=== PATIENT | male | born 2000 | race Caucasian/White ===

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

== ENCOUNTER → 2018-01-25 10:40 | Outpatient (CLI) | payer BC, SELFPAY ==
[2018-01-25 12:27] LABS: Absolute Lymphocyte Count 2.12 X10^3/ul (0.83-4.51); Absolute Neutrophil Count 3.4 X10^3/uL (2.0-7.7); Basophil# 0.01 X10^3/uL; Basophil% 0.2 % (0-1); Eosinophils% 1.7 % (0-5); Hematocrit 45.1 % (40-54); Hemoglobin 15.4 g/dl (13.0-16.5); Lymphocyte # 2.12 X10^3/ul (4.0); Lymphocyte % 35.2 % (19-41); Mean Corp Hgb Conc 34.1 g/gl (32-36); Mean Corpuscular Hgb 30.3 pg (27.0-32.0); Mean Corpuscular Volume 88.6 fL (80-94); Mean Platelet Vol. 12.2 fl (6.2-12.0); Monocyte# 0.36 X10^3/uL; Neutrophil # 3.44 X10^3/uL (2.7-7.7); Neutrophil % 56.9 % (47-70); Platelet Count 179 K/mm3 (150-450); RBC Distribution Width CV 12.5 % (11.6-14.6); RBC Distribution Width SD 39.9 fl (35.1-43.9); Red Blood Count 5.09 M/mm3 (4.6-6.2)
[2018-01-25 12:31] LABS: POSITIVE COUNT NO; POSITIVE DIFFERENTIAL NO; POSITIVE MORPHOLOGY NO
[2018-01-25 12:45] LABS: ALB/GLOB Ratio 1.1 RATIO (0.9-2.4); AST(SGOT) 17 U/L (15-37); Alanine Aminotransfer ALT/SGPT 27 U/L (16-61); Albumin, Serum 4.2 g/dL (3.2-5.0); Alkaline Phosphatase 74 U/L (45-117); Anion Gap 8 (5-15); BUN 14 mg/dL (7-18); BUN/Creat Ratio 15.1 RATIO (10-20); Calcium,Total 9.4 mg/dL (8.5-10.1); Chloride 105 mmol/L (98-107); Creatinine, Serum 0.93 mg/dL (0.70-1.30); EST Glomerular Filtration Rate 110 mL/min (>60); Est Glom Filt Rate - Afr Amer 133 mL/min (>60); Globulin 3.9 g/dL (2.2-4.2); Glucose 112 mg/dL (74-106); Protein, Total 8.1 g/dL (6.4-8.2); Sodium Level 140 mmol/L (136-145)
== END ==
PROVIDERS: Family Provider Pediatrics; PCP Pediatrics; Visit Provider Internal Medicine Rheumatology
DX: M06.4 Inflammatory polyarthropathy (principal); Z79.899 Other long term (current) drug therapy; M21.40 Flat foot [pes planus] (acquired), unspecified foot; K21.9 Gastro-esophageal reflux disease without esophagitis; J45.909 Unspecified asthma, uncomplicated; N20.0 Calculus of kidney
CPT/HCPCS: 36415; 80053; 85025

== ENCOUNTER → 2018-04-24 07:36 | Outpatient (CLI) | payer BC, SELFPAY ==
[2018-04-24 10:53] LABS: Absolute Lymphocyte Count 2.95 X10^3/ul (0.83-4.51); Absolute Neutrophil Count 3.4 X10^3/uL (2.0-7.7); Basophil# 0.02 X10^3/uL; Basophil% 0.3 % (0-1); Eosinophils% 2.7 % (0-5); Hematocrit 43.1 % (40-54); Lymphocyte # 2.95 X10^3/ul (4.0); Lymphocyte % 39.8 % (19-41); Mean Corp Hgb Conc 34.8 g/gl (32-36); Mean Corpuscular Hgb 30.4 pg (27.0-32.0); Mean Corpuscular Volume 87.2 fL (80-94); Mean Platelet Vol. 11.8 fl (6.2-12.0); Monocyte# 0.84 X10^3/uL; Monocyte% 11.3 % (0-10); Neutrophil # 3.38 X10^3/uL (2.7-7.7); Neutrophil % 45.5 % (47-70); Platelet Count 198 K/mm3 (150-450); RBC Distribution Width CV 12.2 % (11.6-14.6); RBC Distribution Width SD 38.1 fl (35.1-43.9); Red Blood Count 4.94 M/mm3 (4.6-6.2); White Blood Count 7.4 K/mm3 (4.4-11.0)
[2018-04-24 10:54] LABS: POSITIVE COUNT NO; POSITIVE DIFFERENTIAL NO; POSITIVE MORPHOLOGY NO
[2018-04-24 11:10] LABS: ALB/GLOB Ratio 1.1 RATIO (0.9-2.4); AST(SGOT) 15 U/L (15-37); Alanine Aminotransfer ALT/SGPT 26 U/L (16-61); Alkaline Phosphatase 66 U/L (45-117); Anion Gap 8 (5-15); BUN 20 mg/dL (7-18); BUN/Creat Ratio 23.2 RATIO (10-20); Calcium,Total 9.4 mg/dL (8.5-10.1); Chloride 106 mmol/L (98-107); Creatinine, Serum 0.86 mg/dL (0.70-1.30); EST Glomerular Filtration Rate 120 mL/min (>60); Est Glom Filt Rate - Afr Amer 145 mL/min (>60); Globulin 3.6 g/dL (2.2-4.2); Glucose 85 mg/dL (74-106); Potassium 4.3 mmol/L (3.5-5.1); Protein, Total 7.6 g/dL (6.4-8.2); Sodium Level 143 mmol/L (136-145)
--- OUTSIDE RECORDS SUMMARY | 2018-06-10 02:33 | XMS RPT_ITS ---
:2000 Author Organization OH[facility] Care Team Providers Name Role Phone RONALD FRANKEL Attending Unavailable JOHN HAYWARD (PT) Attending Unavailable EV LOPEZ (BUSINESS MACHINE OPERATOR) Referring Unavailable Sophie Kenyon Attending Unavailable Sophie Kenyon Referring Unavailable Holley Arroyo Primary Care Unavailable Pablo Henry Attending Unavailable Holley Arroyo Primary Care Unavailable Pablo Henry Referring Unavailable Angelitocortez Sophie Attending Unavailable Velursula, Sophie Referring Unavailable Holley Arroyo Primary Care Unavailable Velursula, Sophie Attending Unavailable Vellanki, Sophie Referring Unavailable Holley Arroyo Primary Care Unavailable Vellanki, Sophie Attending Unavailable Vellancortez, Sophie Referring Unavailable Holley Arroyo Primary Care Unavailable PROBLEMS PROBLEMS DATE TYPE CONDITION / CODE ATTENDING STATUS SOURCE 04/24/2018 Unknown 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 / Community M06.4(ICD-10) Hospital Repository 04/24/2018 Unknown Z79.899 - Other long Sophie Kenyon Active [facility] term (current) drug Community therapy / Hospital Z79.899(ICD-10) Repository 04/24/2018 Unknown M21.40 - Flat foot Sophie Kenyon Active [facility] [pes planus] Formerly [facility] (acquired), Hospital unspecified foot / Repository M21.40(ICD-10) 04/24/2018 Unknown K21.9 - Sophie Kenyon Active [facility] Gastro-esophageal Formerly [facility] reflux disease Hospital without esophagitis / Repository K21.9(ICD-10) 04/24/2018 Unknown J45.909 - Unspecified VelSophie vergara Active [facility] asthma, uncomplicated Community / J45.909(ICD-10) Hospital Repository 04/24/2018 Unknown N20.0 - Calculus of Sophie Kenyon Active [place] kidney / Community N20.0(ICD-10) Hospital Repository 07/03/2016 Active Concussion without GOLIAS, JOHN Active [facility] loss of (PT) Clinic Main consciousness, [place] initial encounter / Repository S06.0X0A(ICD-10) PROCEDURES PROCEDURES No Procedure Records FoundRESULTS RESULTS CBC W/DIFF, AUTOMATED Collected: 04/24/2018 Status: F Source: [facility] TYPE CODE TESTS RESULT OUT OF RANGE REFERENCE UNITS LAB L100.1000 4.4-11.0 K/mm3 Normal WBC 7.4 LAB L100.1200 4.6-6.2 M/mm3 Normal RBC 4.94 LAB L100.1300 13.0-16.5 g/dl Normal HGB 15.0 LAB L100.1400 40-54 % Normal HCT 43.1 LAB L100.1500 80-94 fL Normal MCV 87.2 LAB L100.1600 27.0-32.0 pg Normal MCH 30.4 LAB L100.1700 32-36 g/gl Normal MCHC 34.8 LAB L100.1810 11.6-14.6 % Normal RDW CV 12.2 LAB L100.1820 35.1-43.9 fl Normal RDW SD 38.1 LAB L100.1900 150-450 K/mm3 Normal PLT 198 LAB L100.2000 6.2-12.0 fl Normal MPV 11.8 LAB L100.2100 47-70 % Low NEUT% 45.5 LAB L100.2200 19-41 % Normal LY% 39.8 LAB L100.2300 0-10 % High MONO% 11.3 LAB L100.2400 0-5 % Normal EO% 2.7 LAB L100.2500 0-1 % Normal BASO% 0.3 LAB L100.2550 0.0-0.9 % Normal IM GRAN % 0.400 Result Comment: IG% - Immature Granulocytes (promyelocytes, myelocytes and metamyelocytes) > 1% indicates that a LEFT SHIFT is Present. LAB L100.2620 2.0-7.7 X10 3/uL Normal Absolute Neut 3.4 LAB L100.2720 0.83-4.51 X10 3/ul Normal Absolute Lymph 2.95 Performed By: #### L100.0100 #### [facility] [address] [place], [address] COMPREHENSIVE METABOLIC Collected: 04/24/2018 Status: F Source: [place] 7:44 AM [facility] REPOSITORY TYPE CODE TESTS RESULT OUT OF RANGE REFERENCE UNITS LAB L501.0100 74-106 mg/dL Normal GLU 85 Result Comment: Please note revised GLUCOSE reference range effective 2017. LAB L501.1000 7-18 mg/dL High BUN 20 LAB L501.1100 0.70-1.30 mg/dL Normal CREAT,SERUM 0.86 Result Comment: The validity of the calculated GFR AND GFRAA in patients over 70 years has not been determined. Clinical correlation is essential. LAB L501.1110 >60 mL/min Normal EST GFR 120 Result Comment: Non- GFR Calc LAB L501.1115 >60 mL/min Normal EST GFR - AA 145 Result Comment: GFR Calc LAB L501.1300 10-20 RATIO High BUN/CRE 23.2 LAB L501.1500 6.4-8.2 g/dL T Normal PROT 7.6 LAB L501.1800 3.2-5.0 g/dL Normal ALB 4.0 LAB L501.1950 2.2-4.2 g/dL Normal GLOB 3.6 LAB L501.2000 0.9-2.4 RATIO Normal A/G 1.1 LAB L501.2200 8.5-10.1 mg/dL CA Normal 9.4 LAB L501.4100 15-37 U/L Normal AST 15 LAB L501.4305 45-117 U/L Normal ALK P 66 LAB L501.4405 16-61 U/L Normal ALT 26 LAB L501.4600 0.20-1.00 mg/dL T Normal BILI 0.40 LAB L501.5300 136-145 mmol/L NA Normal 143 LAB L501.5600 3.5-5.1 mmol/L K Normal 4.3 LAB L501.5900 98-107 mmol/L CL Normal 106 LAB L501.6100 21.0-32.0 mmol/L Normal CO2 29.0 LAB L501.6200 5-15 Normal GAP 8 Performed By: #### L500.4050 #### [facility] [address] [place], [address] CBC W/DIFF, AUTOMATED Collected: 01/25/2018 Status: F Source: [place] 10:44 AM [facility] REPOSITORY TYPE CODE TESTS RESULT OUT OF RANGE REFERENCE UNITS LAB L100.1000 4.4-11.0 K/mm3 Normal WBC 6.0 LAB L100.1200 4.6-6.2 M/mm3 Normal RBC 5.09 LAB L100.1300 13.0-16.5 g/dl Normal HGB 15.4 LAB L100.1400 40-54 % Normal HCT 45.1 LAB L100.1500 80-94 fL Normal MCV 88.6 LAB L100.1600 27.0-32.0 pg Normal MCH 30.3 LAB L100.1700 32-36 g/gl Normal MCHC 34.1 LAB L100.1810 11.6-14.6 % Normal RDW CV 12.5 LAB L100.1820 35.1-43.9 fl Normal RDW SD 39.9 LAB L100.1900 150-450 K/mm3 Normal PLT 179 LAB L100.2000 6.2-12.0 fl High MPV 12.2 LAB L100.2100 47-70 % Normal NEUT% 56.9 LAB L100.2200 19-41 % Normal LY% 35.2 LAB L100.2300 0-10 % Normal MONO% 6.0 LAB L100.2400 0-5 % Normal EO% 1.7 LAB L100.2500 0-1 % Normal BASO% 0.2 LAB L100.2550 0.0-0.9 % Normal IM GRAN % 0.000 Result Comment: IG% - Immature Granulocytes (promyelocytes, myelocytes and metamyelocytes) > 1% indicates that a LEFT SHIFT is Present. LAB L100.2620 2.0-7.7 X10 3/uL Normal Absolute Neut 3.4 LAB L100.2720 0.83-4.51 X10 3/ul Normal Absolute Lymph 2.12 Performed By: #### L100.0100 #### [facility] [address] [place], [place], [address] COMPREHENSIVE METABOLIC Collected: 01/25/2018 Status: F Source: [facility] 10:44 AM [facility] REPOSITORY TYPE CODE TESTS RESULT OUT OF RANGE REFERENCE UNITS LAB L501.0100 74-106 mg/dL High GLU 112 Result Comment: Fasting Glucose result from 100 to 125 mg/dL suggests IMPAIRED HOMEOSTASIS per A.D.A. criteria. Please note revised GLUCOSE reference range effective 2017. LAB L501.1000 7-18 mg/dL Normal BUN 14 LAB L501.1100 0.70-1.30 mg/dL Normal CREAT,SERUM 0.93 Result Comment: The validity of the calculated GFR AND GFRAA in patients over 70 years has not been determined. Clinical correlation is essential. LAB L501.1110 >60 mL/min Normal EST GFR 110 Result Comment: Non- GFR Calc LAB L501.1115 >60 mL/min Normal EST GFR - AA 133 Result Comment: GFR Calc LAB L501.1300 10-20 RATIO Normal BUN/CRE 15.1 LAB L501.1500 6.4-8.2 g/dL T Normal PROT 8.1 LAB L501.1800 3.2-5.0 g/dL Normal ALB 4.2 LAB L501.1950 2.2-4.2 g/dL Normal GLOB 3.9 LAB L501.2000 0.9-2.4 RATIO Normal A/G 1.1 LAB L501.2200 8.5-10.1 mg/dL CA Normal 9.4 LAB L501.4100 15-37 U/L Normal AST 17 LAB L501.4305 45-117 U/L Normal ALK P 74 LAB L501.4405 16-61 U/L Normal ALT 27 LAB L501.4600 0.20-1.00 mg/dL T Normal BILI 0.90 LAB L501.5300 136-145 mmol/L NA Normal 140 LAB L501.5600 3.5-5.1 mmol/L K Normal 4.0 LAB L501.5900 98-107 mmol/L CL Normal 105 LAB L501.6100 21.0-32.0 mmol/L Normal CO2 27.0 LAB L501.6200 5-15 Normal GAP 8 Performed By: #### L500.4050 #### [facility] [place], [address] CNOV Observed: 01/10/2018 Status: COMPLETED Source: [place] 10:00 AM [facility] REPOSITORY Office Visit (PEDSWS) ALBERT SCHNEIDER ([id number]) 2000 M Date Time Provider Department 01/10/18 10:00 AM RONALD FRANKEL During your visit today, we recorded the following information about you: Temperature Pulse Respiration Blood pressure 97.8 degrees 80/minute 18/minute 112/74 Weight Height 85.7 kg 1.803 m Ronald Frankel MD 01/10/2018 1:23 PM Signed 18 year old male presents for a routine 12+ year check-up. Patient sees an outside provider for rheumatology. Per the patient his working diagnosis is rheumatoid arthritis. It does not appear that the outside radiation control specialist communicates with this office. No notes in the scanned documentation section. 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 Negative for: intravenous drug user, healthcare worker, live or work in a homeless [employer], migrant farm camp, assisted or fdc, or [place]. [] GENERAL QUESTIONS color enhanced section Patient concerns: NONE Parental concerns: NONE Diet: milk: whole ; balanced diet; specific issues: NONE Stools: NORMAL (soft and appropriately sized) Urine: NO PROBLEMS Fluoride Water: uses significant amount of well water Prescription: age 17+ years - no fluoride supplement indicated Ongoing subspecialty care: Ongoing care: sees For arthritis Ongoing ancillary care: NONE School/etc: college sophomore, doing well, grades A-B. Interests AND Activities: NONE Significant stresses: No [] SPORTS QUESTIONS color enhanced section History of seizures: No History of concussion: No History of syncope: No History of heart problems: No History of hypertension: No History of asthma: No History of single kidney: No History of skeletal problems: No History of any significant injury: No Family history of either heart problems or sudden <age 40 years: No MEDICAL HISTORY Past medical history: IMPORTED PAST MEDICAL HISTORY Diagnosis Date - NEGATIVE HISTORY OF 03/17/2011 Color Vision - Other diseases of trachea and bronchus, not elsewhere classified - Rheumatoid arthritis involving multiple sites ([facility]) 04/21/2016 - SLE (systemic lupus erythematosus) ([facility]) 04/21/[address] Kenyon - Unspecified asthma(493.90) IMPORTED PAST SURGICAL HISTORY Procedure Laterality Date - CIRCUMCISION,OTHR, Family history: IMPORTED FAMILY HISTORY Problem Relation Age of Onset - Hypertension Mother pulmonary - other (ulcerative colitis) Mother - other (congenital blockage) Mother - other (kidney stones) Mother - other (hypoglycemia) Mother - other (Lupus) Mother - other (Cirrois) Mother - None Father - Thyroid Paternal Grandmother - other (Cancer Colon) Paternal Grandfather at 60. (Suddenly) - Diabetes Other maternal and paternal side [] SOCIAL HISTORY color enhanced section Sexual activity: No Substance abuse and smoking: No High risk behaviors: Yes, details: friends use/sell drugs Mental health: POSITIVE OUTLOOK Social history obtained when patient was alone [] MISCELLANEOUS color enhanced section Difficulties with learning for patient: No VISION AND HEARING ASSESSMENT Eye doctor visit within the past year: No Vision: Correction: NONE, As tested: NONE Acuity: RIGHT: 20/ 15 LEFT: 20/ 20 Color Vision: normal today Hearing concerns: No [] ADDITIONAL NURSING COMMENTS color enhanced section None Lorena Yepez MA Immunization History Administered Date(s) Administered DTaP (Age<7) [birth year] 04/12/1999 08/25/2003 Hepatitis A vaccine 04/27/2008 03/03/2010 Hepatitis B Peds/Adol [birth year] 1998 Hib - 4 Dose Schedule [birth year] 1998 04/12/1999 Human Papillomavirus 9-valent Vaccine, Recombinant 04/05/2015 06/08/2015 12/03/2015 IPV 1998 2000 02/05/1999 08/25/2003 Influenza Seasonal Inj Quadrivalent Age 3+ 04/05/2015 04/21/2016 Influenza Seasonal Inj Quadrivalent Age 3+ Pres Free 04/02/2014 Influenza Vaccine, Split-Non Spec 03/17/2005 03/17/2006 03/12/2007 03/19/2008 02/13/2009 02/17/2010 03/17/2011 03/25/2012 04/01/2013 MMR 02/05/1999 08/25/2003 Meningococcal Conj IM Unspec 03/03/2010 Meningococcal Conjugate MCV4P Vaccine, IM 04/02/2014 Tdap (Age 7+) 03/03/2010 Varicella Vaccine 04/12/1999 12/24/2010 PHYSICAL EXAM (to re-import BP% use .BPFA) General: alert and active in no apparent distress Head: Normocephalic, atraumatic Eyes: PERRLA, EOM's intact Ears: External ears normal. Canals clear. Tympanic membranes are intact bilaterally without evidence of fluid in the middle ear space Nose/Sinuses: Nares normal. Septum midline. Mucosa normal. No drainage or sinus tenderness. Oropharynx: Tonsils are 1+. Uvula is midline and the oropharynx is symmetrical Neck: No masses and the suprasternal notch, no supraclavicular adenopathy, supple, no adenopathy Thyroid: no masses or nodules present Heart: Regular Rate and Rhythm without murmurs or clicks, femoral and radial pulses are normal.PMI normal Lungs: clear to auscultation. No wheezes or rales.Chest AP diameter normal. Abdomen: Abdomen is soft, nontender, without organomegaly or masses. Breasts: normal male exam : Testicles are descended bilaterally without evidence of hernia, hydrocele or mass Musculoskeletal: Extremities with FROM and no problems identified. Negative Nicole forward bend test. Bilateral shoulder, elbow and wrist exams are within normal limits. Bilateral hip, knee and ankle examinations are within normal limits. Neurological: Muscle tone normal, Awake, alert and oriented x 3, Cranial nerves II-XII grossly intact, Reflexes symmetrical, Normal age appropriate gait, muscle tone normal, muscle strength normal, rapid alternating movements normal Skin: Normal skin exam without concerning lesions ASSESSMENT: 18 year old Well exam Active medical problems: Rheumatoid arthritis: Followed by an outside radiation control specialist PLAN: Plan per orders. Form completed Counseling: See patient instruction section Follow up yearly. Growth curves reviewed with the patient including BMI. I have reviewed the above nursing obtained HPI and I concur. MD Ronald Ibarra MD 01/10/2018 1:22 PM Signed 14-18 years Fueling Your Thoughts ? Are you concerned with your child's eating habits or level of activity? ? Do you and your child eat vegetables every day? ? How many meals do you eat as a family each week? How many are from fast food, take out, etc? ? What beverages do you buy? ? How much time does your child watch TV, play on the computer, play video games, or text daily? ? What do you and your child do to stay active? Nutrition Tips By providing nutritious foods to your child, you help him or her improve strength, energy, attention span and the ability to keep up with friends. ? Breakfast - Eating a healthy breakfast every day is recommended. ? Lunch - Review school menus with your child and plan ahead; or pack a lunch with at least 4 out of the 5 food groups (calcium foods, fruits, vegetables, whole grains and lean protein). ? Snacks - Eat only when hungry. Stock up on [id number] vegetables, fruit, cheese, yogurt, milk, lean meats, whole grains, low sugar cereal or nuts. ? Dinner - Eat as many meals as possible as a family at the dinner table. Be sure to slow down, enjoy, and turn off screens. ? Eating Out - Keep portion sizes small or share meals (don't super size). Choose fruit or salad instead of fries, milk instead of soft drinks, baked or broiled instead of fried. ? Beverages - Think Your Drink! ? The best choices are water or milk. ? Limit sweetened beverages such as soft drinks, iced teas, energy drinks and caffeine-containing beverages. ? Regular intake of too much caffeine can lead to trouble sleeping, rapid heart rate, anxiety, poor attention span, headaches or shakiness. Your main job is to offer a variety of healthy foods (fruits, vegetables, milk, yogurt, cheese, whole grains, mere, poultry, fish and eggs). Parents ? Make sure you and your kids are active 60 minutes every day. Focus on FUN, including both organized and free play. ? Count time spent doing chores: car washing, walking the dog, dusting, sweeping, pulling weeds, raking leaves or shoveling snow. ? Involve the whole family in physical activity because you are role models! ? Be a good role model for your kids - be active and eat healthy foods. ? Screen time (computers, TV, phones, jaswant systems, texting, etc.) should be limited to 2 hours or less daily (pre-plan how screen time will be used). ? Screens may be monitored easily if moved to a common area; keep them out of child's bedroom. ? Make sure your child is sleeping at least 10-11 hours per night. Keeping regular bed time is critical to good health and weight management. ? Caffeine can interfere with a healthy sleep routine. ? If you have concerns about your child's weight, physical activity or eating behaviors, ask your healthcare provider. Tips Regarding Teens ? Do not criticize your teenager about their size and shape. Focus on strengths rather than appearance. ? Remember that parents can still influence choices...as a parent you are still the role model! 5 to Go!TM Healthy Kids Inside AND Out 5 Eat FIVE fruits and veggies a day 4 Give and get FOUR compliments a day 3 Consume THREE calcium products a day 2 Limit media time to TWO hours a day 1 Get at least ONE hour of exercise a day 0 Consume ZERO sugar-sweetened drinks Go! Be healthy, inside and out! [email or web address].org/5toGo Referring Provider: SELF [200] Allergies As of Date: 01/10/2018 Noted Allergy Reaction enviromental [Other] 12/02/2007 Date Reviewed: 01/10/2018 Reviewed by: Lorena Yepez MA - Fully Assessed Reason for Visit: Physical [83] Cmt: 18 year old Primary Visit Diagnosis:Encounter for general adult medical examination without abnormal findings [Z00.00] Prescriptions as of 01/10/2018 Sig: HYDROXYCHLOROQUINE 200 MG TAB* Take by mouth once daily. ALBUTEROL SULFATE HFA 90 MCG/* Inhale 2 Puffs as instructed * SULFASALAZINE ORAL Take by mouth. LORATADINE 10 MG TABLET TAKE 1 TABLET BY MOUTH ONCE D* * NASONEX 50 MCG/ACTUATION SPRAY 1 inhalation each nostril taya* Problem List As Of Date 01/10/2018 Noted Resolved Right arm pain [M79.601] INVALID FOR*04/21/2016 Fracture, radius [S52.90XA] INVALID FOR*04/21/2016 Asthma [J45.909] INVALID FOR* Acid reflux [K21.9] INVALID FOR*04/21/2016 SLE (systemic lupus erythematosus) (HCC) [M32.9]INVALID FOR* More... Rheumatoid arthritis involving multiple sites (*INVALID FOR* Concussion without loss of consciousness [S06.0*INVALID FOR* Other instructions from your clinician: 14-18 years Fueling Your Thoughts ? Are you concerned with your child's eating habits or level of activity? ? Do you and your child eat vegetables every day? ? How many meals do you eat as a family each week? How many are from fast food, take out, etc? ? What beverages do you buy? ? How much time does your child watch TV, play on the computer, play video games, or text daily? ? What do you and your child do to stay active? Nutrition Tips By providing nutritious foods to your child, you help him or her improve strength, energy, attention span and the ability to keep up with friends. ? Breakfast - Eating a healthy breakfast every day is recommended. ? Lunch - Review school menus with your child and plan ahead; or pack a lunch with at least 4 out of the 5 food groups (calcium foods, fruits, vegetables, whole grains and lean protein). ? Snacks - Eat only when hungry. Stock up on [id number] vegetables, fruit, cheese, yogurt, milk, lean meats, whole grains, low sugar cereal or nuts. ? Dinner - Eat as many meals as possible as a family at the dinner table. Be sure to slow down, enjoy, and turn off screens. ? Eating Out - Keep portion sizes small or share meals (don't super size). Choose fruit or salad instead of fries, milk instead of soft drinks, baked or broiled instead of fried. ? Beverages - Think Your Drink! ? The best choices are water or milk. ? Limit sweetened beverages such as soft drinks, iced teas, energy drinks and caffeine-containing beverages. ? Regular intake of too much caffeine can lead to trouble sleeping, rapid heart rate, anxiety, poor attention span, headaches or shakiness. Your main job is to offer a variety of healthy foods (fruits, vegetables, milk, yogurt, cheese, whole grains, mere, poultry, fish and eggs). Parents ? Make sure you and your kids are active 60 minutes every day. Focus on FUN, including both organized and free play. ? Count time spent doing chores: car washing, walking the dog, dusting, sweeping, pulling weeds, raking leaves or shoveling snow. ? Involve the whole family in physical activity because you are role models! ? Be a good role model for your kids - be active and eat healthy foods. ? Screen time (computers, TV, phones, jaswant systems, texting, etc.) should be limited to 2 hours or less daily (pre-plan how screen time will be used). ? Screens may be monitored easily if moved to a common area; keep them out of child's bedroom. ? Make sure your child is sleeping at least 10-11 hours per night. Keeping regular bed time is critical to good health and weight management. ? Caffeine can interfere with a healthy sleep routine. ? If you have concerns about your child's weight, physical activity or eating behaviors, ask your healthcare provider. Tips Regarding Teens ? Do not criticize your teenager about their size and shape. Focus on strengths rather than appearance. ? Remember that parents can still influence choices...as a parent you are still the role model! 5 to Go!TM Healthy Kids Inside AND Out 5 Eat FIVE fruits and veggies a day 4 Give and get FOUR compliments a day 3 Consume THREE calcium products a day 2 Limit media time to TWO hours a day 1 Get at least ONE hour of exercise a day 0 Consume ZERO sugar-sweetened drinks Go! Be healthy, inside and out! www.[facility].org/5toGo Disposition: Return for Follow-up in one year for routine physical. Follow-up and Disposition History Recorded Questionnaire: PED PHQ 9 1. Feeling down, depressed, irritable or hopeless? -> 0 - Not at All 2. Little interest or pleasure in doing things? -> 0 - Not At All 3. Trouble falling asleep, staying asleep, or sleeping too much? -> 2 - More Than Half the Days 4. Poor appetite, weight loss, or overeating? -> 0 - Not At All 5. Feeling tired or little energy? -> 1 - Several Days 6. Feeling bad about yourself-or feeling that you are a failure or that you have let yourself or your family down? -> 0 - Not At All 7. Trouble concentrating on things like school work, reading or watching TV? -> 0 - No- t At All 8. Moving or speaking so slowly that other people could have notices? Or the opposite-being so fidgety or restless that you were moving around a lot more than usual? -> 0 - Not At All 9. Thoughts that you would be better off or of hurting yourself in some way? -> 0 - Not At All 10. In the past year have you felt depressed or sad most days, even if you felt okay sometimes? -> No 11. If you are experiencing any of the problems listed on this questionnaire, how difficult have these problems made it for you to do your work, take care of things at home or get along with other people? -> Not at all difficult 12. Has there been a time in the past month when you have had serious thoughts about ending your life? -> No 13. Have you ever tried to kill yourself or made a suicide attempt? -> No SCORE -> 3 Total Score: Depression Severity -> 01-04=Minimal depression Questionnaire: PED SOCIAL HLTH TOOL In the last 3 months, were you ever worried your food would run out before you could buy more? -> No In the last 12 months, has it been hard for you to pay any of these bills: Utility, Housing, Car, and Medical? -> Yes Are you worried that in the next 2 months, you may not have stable housing? -> No Do problems getting child welfare counselor make it difficult for you to work or study? (leave blank if you do not have children) -> No In the last 12 months, have you needed to see a doctor but could not because of the cost? -> No In the last 12 months, have you ever had to go without health care because you didn?t have a way to get there? -> No Do you ever need help reading hospital materials? -> No Are you afraid you might be hurt in your apartment building or house? -> No If you checked YES to any boxes above, would you like to receive assistance with any of these needs? -> No Are any of your needs urgent? (For example: I don?t have food tonight, I don?t have a place to sleep tonight) -> No Over the past 2 weeks, have you had little interest or pleasure in doing things? -> Not at all Over the past 2 weeks have you felt down, depressed or hopeless? -> Not at all Encounter Status:Closed by RONALD FRANKEL MD on 01/10/18 PROGRESS Observed: 01/10/2018 Status: COMPLETED Source: [place] 9:54 AM [facility] REPOSITORY HNO ID: [id number] Author: Ronald Frankel Service: (none) Author Type: Physician Type: Progress Notes Filed: 01/10/2018 1:23 PM Note Text: 18 year old male presents for a routine 12+ year check-up. Patient sees an outside provider for rheumatology. Per the patient his working diagnosis is rheumatoid arthritis. It does not appear that the outside radiation control specialist communicates with this office. No notes in the scanned documentation section. 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 Negative for: intravenous drug user, healthcare worker, live or work in a homeless [facility], migrant farm camp, assisted or [facility]dc, or [place]. [] GENERAL QUESTIONS color enhanced section Patient concerns: NONE Parental concerns: NONE Diet: milk: whole ; balanced diet; specific issues: NONE Stools: NORMAL (soft and appropriately sized) Urine: NO PROBLEMS Fluoride Water: uses significant amount of well water Prescription: age 17+ years - no fluoride supplement indicated Ongoing subspecialty care: Ongoing care: sees For arthritis Ongoing ancillary care: NONE School/etc: college sophomore, doing well, grades A-B. Interests AND Activities: NONE Significant stresses: No [] SPORTS QUESTIONS color enhanced section History of seizures: No History of concussion: No History of syncope: No History of heart problems: No History of hypertension: No History of asthma: No History of single kidney: No History of skeletal problems: No History of any significant injury: No Family history of either heart problems or sudden <age 40 years: No MEDICAL HISTORY Past medical history: IMPORTED PAST MEDICAL HISTORY Diagnosis Date - NEGATIVE HISTORY OF 03/17/2011 Color Vision - Other diseases of trachea and bronchus, not elsewhere classified - Rheumatoid arthritis involving multiple sites ([facility]) 04/21/2016 - SLE (systemic lupus erythematosus) ([facility]) 04/21/[address] Kenyon - Unspecified asthma(493.90) IMPORTED PAST SURGICAL HISTORY Procedure Laterality Date - CIRCUMCISION,OTHR, Family history: IMPORTED FAMILY HISTORY Problem Relation Age of Onset - Hypertension Mother pulmonary - other (ulcerative colitis) Mother - other (congenital blockage) Mother - other (kidney stones) Mother - other (hypoglycemia) Mother - other (Lupus) Mother - other (Cirrois) Mother - None Father - Thyroid Paternal Grandmother - other (Cancer Colon) Paternal Grandfather at 60. (Suddenly) - Diabetes Other maternal and paternal side [] SOCIAL HISTORY color enhanced section Sexual activity: No Substance abuse and smoking: No High risk behaviors: Yes, details: friends use/sell drugs Mental health: POSITIVE OUTLOOK Social history obtained when patient was alone [] MISCELLANEOUS color enhanced section Difficulties with learning for patient: No VISION AND HEARING ASSESSMENT Eye doctor visit within the past year: No Vision: Correction: NONE, As tested: NONE Acuity: RIGHT: 20/ 15 LEFT: 20/ 20 Color Vision: normal today Hearing concerns: No [] ADDITIONAL NURSING COMMENTS color enhanced section None Lorena Yepez MA Immunization History Administered Date(s) Administered DTaP (Age<7) 1998 1998 1998 04/12/1999 08/25/2003 Hepatitis A vaccine 04/27/2008 03/03/2010 Hepatitis B Peds/Adol 1998 1998 1998 Hib - 4 Dose Schedule 1998 1998 1998 04/12/1999 Human Papillomavirus 9-valent Vaccine, Recombinant 04/05/2015 06/08/2015 12/03/2015 IPV 1998 1998 02/05/1999 08/25/2003 Influenza Seasonal Inj Quadrivalent Age 3+ 04/05/2015 04/21/2016 Influenza Seasonal Inj Quadrivalent Age 3+ Pres Free 04/02/2014 Influenza Vaccine, Split-Non Spec 03/17/2005 03/17/2006 03/12/2007 03/19/2008 02/13/2009 02/17/2010 03/17/2011 03/25/2012 04/01/2013 MMR 02/05/1999 08/25/2003 Meningococcal Conj IM Unspec 03/03/2010 Meningococcal Conjugate MCV4P Vaccine, IM 04/02/2014 Tdap (Age 7+) 03/03/2010 Varicella Vaccine 04/12/1999 12/24/2010 PHYSICAL EXAM (to re-import BP% use .BPFA) General: alert and active in no apparent distress Head: Normocephalic, atraumatic Eyes: PERRLA, EOM's intact Ears: External ears normal. Canals clear. Tympanic membranes are intact bilaterally without evidence of fluid in the middle ear space Nose/Sinuses: Nares normal. Septum midline. Mucosa normal. No drainage or sinus tenderness. Oropharynx: Tonsils are 1+. Uvula is midline and the oropharynx is symmetrical Neck: No masses and the suprasternal notch, no supraclavicular adenopathy, supple, no adenopathy Thyroid: no masses or nodules present Heart: Regular Rate and Rhythm without murmurs or clicks, femoral and radial pulses are normal.PMI normal Lungs: clear to auscultation. No wheezes or rales.Chest AP diameter normal. Abdomen: Abdomen is soft, nontender, without organomegaly or masses. Breasts: normal male exam : Testicles are descended bilaterally without evidence of hernia, hydrocele or mass Musculoskeletal: Extremities with FROM and no problems identified. Negative Nicole forward bend test. Bilateral shoulder, elbow and wrist exams are within normal limits. Bilateral hip, knee and ankle examinations are within normal limits. Neurological: Muscle tone normal, Awake, alert and oriented x 3, Cranial nerves II-XII grossly intact, Reflexes symmetrical, Normal age appropriate gait, muscle tone normal, muscle strength normal, rapid alternating movements normal Skin: Normal skin exam without concerning lesions ASSESSMENT: 18 year old Well exam Active medical problems: Rheumatoid arthritis: Followed by an outside radiation control specialist PLAN: Plan per orders. Form completed Counseling: See patient instruction section Follow up yearly. Growth curves reviewed with the patient including BMI. I have reviewed the above nursing obtained HPI and I concur. Ronald Frankel MD CBC W/DIFF, AUTOMATED Collected: 10/23/2017 Status: F Source: [place] 10:58 AM [facility] REPOSITORY TYPE CODE TESTS RESULT OUT OF RANGE REFERENCE UNITS LAB L100.1000 4.4-11.0 K/mm3 Normal WBC 5.9 LAB L100.1200 4.6-6.2 M/mm3 Normal RBC 5.08 LAB L100.1300 13.0-16.5 g/dl Normal HGB 15.5 LAB L100.1400 40-54 % Normal HCT 44.1 LAB L100.1500 80-94 fL Normal MCV 86.8 LAB L100.1600 27.0-32.0 pg Normal MCH 30.5 LAB L100.1700 32-36 g/gl Normal MCHC 35.1 LAB L100.1810 11.6-14.6 % Normal RDW CV 12.3 LAB L100.1820 35.1-43.9 fl Normal RDW SD 38.7 LAB L100.1900 150-450 K/mm3 Normal PLT 184 LAB L100.2000 6.2-12.0 fl Normal MPV 11.9 LAB L100.2100 47-70 % Normal NEUT% 48.6 LAB L100.2200 19-41 % Normal LY% 37.7 LAB L100.2300 0-10 % High MONO% 10.9 LAB L100.2400 0-5 % Normal EO% 2.4 LAB L100.2500 0-1 % Normal BASO% 0.2 LAB L100.2550 0.0-0.9 % Normal IM GRAN % 0.200 Result Comment: IG% - Immature Granulocytes (promyelocytes, myelocytes and metamyelocytes) > 1% indicates that a LEFT SHIFT is Present. LAB L100.2620 2.0-7.7 X10 3/uL Normal Absolute Neut 2.9 LAB L100.2720 0.83-4.51 X10 3/ul Normal Absolute Lymph 2.21 Performed By: #### L100.0100 #### [facility] [address] [place], [place], [address] COMPREHENSIVE METABOLIC Collected: 10/23/2017 Status: F Source: [facility] 10:58 AM [facility] REPOSITORY TYPE CODE TESTS RESULT OUT OF RANGE REFERENCE UNITS LAB L501.0100 74-106 mg/dL Normal GLU 97 Result Comment: Please note revised GLUCOSE reference range effective 2017. LAB L501.1000 7-18 mg/dL Normal BUN 12 LAB L501.1100 0.70-1.30 mg/dL Normal CREAT,SERUM 0.99 Result Comment: The validity of the calculated GFR AND GFRAA in patients over 70 years has not been determined. Clinical correlation is essential. LAB L501.1110 >60 mL/min Normal EST GFR 102 Result Comment: Non- GFR Calc LAB L501.1115 >60 mL/min Normal EST GFR - AA 124 Result Comment: GFR Calc LAB L501.1300 10-20 RATIO Normal BUN/CRE 12.1 LAB L501.1500 6.4-8.2 g/dL T Normal PROT 7.6 LAB L501.1800 3.2-5.0 g/dL Normal ALB 4.3 LAB L501.1950 2.2-4.2 g/dL Normal GLOB 3.3 LAB L501.2000 0.9-2.4 RATIO Normal A/G 1.3 LAB L501.2200 8.5-10.1 mg/dL CA Normal 8.9 LAB L501.4100 15-37 U/L Normal AST 18 LAB L501.4305 45-117 U/L Normal ALK P 75 LAB L501.4405 16-61 U/L Normal ALT 23 LAB L501.4600 0.20-1.00 mg/dL T Normal BILI 0.70 LAB L501.5300 136-145 mmol/L NA Normal 144 LAB L501.5600 3.5-5.1 mmol/L K Normal 4.4 LAB L501.5900 98-107 mmol/L CL Normal 106 LAB L501.6100 21.0-32.0 mmol/L Normal CO2 30.0 LAB L501.6200 5-15 Normal GAP 8 Performed By: #### L500.4050 #### [facility] [address] [place], [address] CBC W/DIFF, AUTOMATED Collected: 07/30/2017 Status: F Source: [place] 11:41 AM [facility] REPOSITORY TYPE CODE TESTS RESULT OUT OF RANGE REFERENCE UNITS LAB L100.1000 4.4-11.0 K/mm3 Normal WBC 5.6 LAB L100.1200 4.6-6.2 M/mm3 Normal RBC 4.98 LAB L100.1300 13.0-16.5 g/dl Normal HGB 15.0 LAB L100.1400 40-54 % Normal HCT 42.7 LAB L100.1500 80-94 fL Normal MCV 85.7 LAB L100.1600 27.0-32.0 pg Normal MCH 30.1 LAB L100.1700 32-36 g/gl Normal MCHC 35.1 LAB L100.1810 11.6-14.6 % Normal RDW CV 12.5 LAB L100.1820 35.1-43.9 fl Normal RDW SD 38.6 LAB L100.1900 150-450 K/mm3 Normal PLT 184 LAB L100.2000 6.2-12.0 fl Normal MPV 11.6 LAB L100.2100 47-70 % Normal NEUT% 49.5 LAB L100.2200 19-41 % Normal LY% 40.9 LAB L100.2300 0-10 % Normal MONO% 7.1 LAB L100.2400 0-5 % Normal EO% 2.3 LAB L100.2500 0-1 % Normal BASO% 0.2 LAB L100.2550 0.0-0.9 % Normal IM GRAN % 0.000 Result Comment: IG% - Immature Granulocytes (promyelocytes, myelocytes and metamyelocytes) > 1% indicates that a LEFT SHIFT is Present. LAB L100.2620 2.0-7.7 X10 3/uL Normal Absolute Neut 2.8 LAB L100.2720 0.83-4.51 X10 3/ul Normal Absolute Lymph 2.30 Performed By: #### L100.0100 #### [facility] [address] [place], [address] COMPREHENSIVE METABOLIC Collected: 07/30/2017 Status: F Source: [place] [facility] [place] 11:41 AM [facility] REPOSITORY TYPE CODE TESTS RESULT OUT OF RANGE REFERENCE UNITS LAB L501.0100 74-106 mg/dL Normal GLU 89 Result Comment: Please note revised GLUCOSE reference range effective 2017. LAB L501.1000 7-18 mg/dL Normal BUN 11 LAB L501.1100 0.70-1.30 mg/dL Normal CREAT,SERUM 0.87 Result Comment: The validity of the calculated GFR AND GFRAA in patients over 70 years has not been determined. Clinical correlation is essential. LAB L501.1110 >60 mL/min Normal EST GFR 120 Result Comment: Non- GFR Calc LAB L501.1115 >60 mL/min Normal EST GFR - AA 145 Result Comment: GFR Calc LAB L501.1300 10-20 RATIO Normal BUN/CRE 12.7 LAB L501.1500 6.4-8.2 g/dL T Normal PROT 7.7 LAB L501.1800 3.2-5.0 g/dL Normal ALB 4.0 LAB L501.1950 2.2-4.2 g/dL Normal GLOB 3.7 LAB L501.2000 0.9-2.4 RATIO Normal A/G 1.1 LAB L501.2200 8.5-10.1 mg/dL CA Normal 9.1 LAB L501.4100 15-37 U/L Normal AST 19 LAB L501.4305 45-117 U/L Normal ALK P 75 LAB L501.4405 16-61 U/L Normal ALT 21 Result Comment: Please note revised ALT reference range effective 2017. LAB L501.4600 0.20-1.00 mg/dL Normal T BILI 0.60 LAB L501.5300 136-145 mmol/L Normal NA 141 LAB L501.5600 3.5-5.1 mmol/L Normal K 4.1 LAB L501.5900 98-107 mmol/L Normal CL 105 LAB L501.6100 21.0-32.0 mmol/L Normal CO2 30.0 LAB L501.6200 5-15 Normal GAP 6 Performed By: #### L500.4050 #### [facility] [address] [place], [address] ABDOMEN SINGLE VIEW Observed: 06/11/2017 Status: F Source: [place] 12:45 PM [facility] REPOSITORY [facility] Imaging Services [address] [place] [address] Abdomen Single View MR#: [id number] Acct: [id number] Name: ALBERT SCHNEIDER Rep #: [id number] : 2000 M 17 From: Doc Burrell PCP: Holley Arroyo MD Status: REG CLI Study: Abdomen Single View Date of Exam: 06/11/17 Exam# [id number] Ordering Dr: Pablo Henry MD STUDY: X-RAY - ABDOMEN/PELVIS REASON FOR EXAM: Male, 17 years old. History of passing kidney stones. TECHNIQUE: AP supine abdomen. COMPARISON: CT abdomen and pelvis April 24, 2017. Abdomen April 23, 2017. FINDINGS: Normal visualized lung bases. There is an unremarkable bowel gas pattern. There is no demonstrated free abdominal air. The visualized liver, spleen and kidneys are grossly normal in size and morphology. Normal soft tissue structures. Normal visualized osseous structures. No pathologic calcifications identified. RAD/Abdomen Single View IMPRESSION: Normal x-ray examination of the abdomen and pelvis. Electronically Signed: Doc Burrell MD at 3:40 EST , Service support , CC: Holley Arroyo MD; Pablo Henry MD Box Attacher: Signed PROGRESS Observed: 06/08/2017 Status: COMPLETED Source: [place] 4:09 PM [facility] REPOSITORY HNO ID: [id number] Author: John (Pt) Yesy Service: (none) Author Type: Physical Therapist Type: Progress Notes Filed: 06/08/2017 4:10 PM Note Text: [facility] PHYSICAL THERAPY DISCONTINUANCE OF CARE Plan of Care Period: No Data Recorded Last Visit Date: 07/03/16 Therapy Program: The following is a summary of the interventions provided for this episode of care; Therapeutic exercise and Patient/Family/Caregiver Education Assessment: Based on most recent visit, patient was progressing faster than expected toward functional goals based on documented subjective information on progress. Unable to formally assess goal achievement due to non-compliance with therapy plan of care. Reason for Discontinuation of Care: Patient has not returned to therapy or scheduled additional follow-up appointments. John Hayward PT ALLERGIES ALLERGIES DATE TYPE / CODE NAME / CODE REACTION SEVERITY SOURCE 04/24/2017 Drug No Known Unknown Colon Allergy/017726883(S Allergies/F Community NOMED CT) [id number]( Hospital XNORM) Repository 12/02/2007 Miscellaneous OTHER [facility] Allergy/074521253([facility] NOMED CT) Repository ENCOUNTERS ENCOUNTERS ADMIT/DISCHARGE ACCOUNT ADMITTING ENCOUNTER LOCATION SOURCE NUMBER CLASS 04/24/2018 [id number] [facility] ing:MTLAB Repository 01/25/2018 [id number] [facility] ing:MTLAB Repository 01/10/2018/01/12/20 [id number] Ambulatory [address] Repository 10/23/2017 [id number] Ambulatory [facility] ing:MTLAB Repository 07/30/2017 [id number] Ambulatory [facility] ing:MTLAB Repository 06/11/2017 [id number] Ambulatory [facility] ing:RAD.FUTUR Repository E 07/03/2016/07/03/19 [id number] Ambulatory [address] Repository PAYERS PAYERS ENCOUNTER GUARANTOR PAYER SUBSCRIBER SOURCE 04/24/2018 ALBERT A Primary ANIL A WADEDOB: Colon [id number] [id number] Repository , [place] [address]Dte: mahesh Date:5489-25-42[address]F[place], [place] () [address]VD: 04/24/2018 Secondary NOT GIVENUNK Sara Insurance:SELF PAY [facility] Number: Effective Repository Date:2018-04-24 01/25/2018 ALBERT A Primary ANIL A WADEDOB: Sara [id number] Insurance:[employer] [id number] [facility]ly [facility] y Number: [id number] Repository , [place] [address]Gxa: mahesh Date:7545-62-98EV [address], [place] [facility]) [address]RY: 01/25/2018 Secondary NOT GIVENUNK Sara Insurance:SELF PAY [facility] Number: Effective Repository Date:2018-01-25 10/23/2017 ALBERT A Primary Anil A WadeDOB: Colon [id number] [id number] Repository , [place] [address]Zle: mahesh Date:1688-86-63BN [address]SBBXWNGMEAGHAN AYALA [facility]) [address]YU: 10/23/2017 Secondary NOT GIVENUNK Sara Insurance:SELF PAY [facility] Number: Effective Repository Date:2017-10-23 07/30/2017 Albert Primary Anil Ndiaye WadeDOB: Colon [id number] Insurance:[facility] [id number] y Number: [id number] Repository , [place] [address]Zyk: mahesh Date:3669-23-10JU [address]JGIM[place], [place] () [address]AN: 07/30/2017 Secondary NOT GIVENUNK Sara Insurance:SELF PAY [facility] Number: Effective Repository Date:2017-07-30 06/11/2017 Albert Ndiaye WadeDOB: Colon [id number] Insurance:[facility] [id number] y Number: [id number] Repository , [place] [address]Uwu: mahesh Date:[id number] [address]HG[address], [place] () [address]TI: 06/11/2017 Secondary NOT GIVENUNK Colon Insurance:SELF PAY [facility] Number: Effective Repository Date:2017-05-18
== END ==
PROVIDERS: Family Provider Pediatrics; PCP Pediatrics; Referring Provider Internal Medicine Rheumatology; Visit Provider Internal Medicine Rheumatology
DX: M06.4 Inflammatory polyarthropathy (principal); Z79.899 Other long term (current) drug therapy; M21.40 Flat foot [pes planus] (acquired), unspecified foot; K21.9 Gastro-esophageal reflux disease without esophagitis; J45.909 Unspecified asthma, uncomplicated; N20.0 Calculus of kidney
CPT/HCPCS: 36415; 80053; 85025

== ENCOUNTER → 2018-08-02 10:35 | Outpatient (CLI) | payer BC, SELFPAY ==
[2018-08-02 12:35] LABS: Absolute Lymphocyte Count 1.88 X10^3/ul (0.83-4.51); Absolute Neutrophil Count 3.5 X10^3/uL (2.0-7.7); Basophil# 0.01 X10^3/uL; Basophil% 0.2 % (0-1); Eosinophil# 0.15 X10^3/uL; Eosinophils% 2.5 % (0-5); Hematocrit 41.5 % (40-54); Hemoglobin 13.9 g/dl (13.0-16.5); Lymphocyte # 1.88 X10^3/ul (4.0); Lymphocyte % 30.7 % (19-41); Mean Corp Hgb Conc 33.5 g/gl (32-36); Mean Corpuscular Hgb 29.6 pg (27.0-32.0); Mean Corpuscular Volume 88.5 fL (80-94); Mean Platelet Vol. 11.6 fl (6.2-12.0); Monocyte# 0.59 X10^3/uL; Monocyte% 9.6 % (0-10); Neutrophil # 3.49 X10^3/uL (2.7-7.7); Platelet Count 178 K/mm3 (150-450); RBC Distribution Width CV 12.6 % (11.6-14.6); RBC Distribution Width SD 40.3 fl (35.1-43.9); Red Blood Count 4.69 M/mm3 (4.6-6.2); White Blood Count 6.1 K/mm3 (4.4-11.0)
[2018-08-02 12:37] LABS: POSITIVE COUNT NO; POSITIVE DIFFERENTIAL NO; POSITIVE MORPHOLOGY NO
[2018-08-02 12:51] LABS: ALB/GLOB Ratio 1.2 RATIO (0.9-2.4); AST(SGOT) 24 U/L (15-37); Alanine Aminotransfer ALT/SGPT 25 U/L (16-61); Albumin, Serum 4.1 g/dL (3.2-5.0); Alkaline Phosphatase 65 U/L (45-117); Anion Gap 7 (5-15); BUN 13 mg/dL (7-18); BUN/Creat Ratio 14.3 RATIO (10-20); Calcium,Total 9.2 mg/dL (8.5-10.1); Chloride 109 mmol/L (98-107); Creatinine, Serum 0.91 mg/dL (0.70-1.30); EST Glomerular Filtration Rate 113 mL/min (>60); Est Glom Filt Rate - Afr Amer 136 mL/min (>60); Globulin 3.5 g/dL (2.2-4.2); Glucose 80 mg/dL (74-106); Potassium 4.3 mmol/L (3.5-5.1); Protein, Total 7.6 g/dL (6.4-8.2); Sodium Level 143 mmol/L (136-145)
== END ==
PROVIDERS: Family Provider Pediatrics; PCP Pediatrics; Referring Provider Internal Medicine Rheumatology; Visit Provider Internal Medicine Rheumatology
DX: M06.4 Inflammatory polyarthropathy (principal); M21.40 Flat foot [pes planus] (acquired), unspecified foot; K21.9 Gastro-esophageal reflux disease without esophagitis; J45.909 Unspecified asthma, uncomplicated; N20.0 Calculus of kidney; Z79.899 Other long term (current) drug therapy
CPT/HCPCS: 36415; 80053; 85025

== ENCOUNTER 2018-08-14 13:13 | Emergency (ER) | payer BC, SELFPAY ==
[2018-08-14 13:14] VITALS: BP 130/75; PULSE 61; RESP 18; TEMP 36.2; O2SAT 97; BMI 29.3
[2018-08-14] MEDS: Ketorolac 30 MG/ML Syringe IV (13:41)
[2018-08-14] MEDS: Ondansetron 4 MG/2 ML Vial IV (13:41)
[2018-08-14] MEDS: 0.9% Normal Saline 1,000 ML 250 ML IV (13:41)
--- NOTE | 2018-08-14 13:48 | RAD_ITS ---
STUDY: X-RAY - ABDOMEN/PELVIS REASON FOR EXAM: Male, 18 years old. Left flank pain with nausea. History of kidney stone. TECHNIQUE: Two AP supine views of the abdomen and pelvis. COMPARISON: 2 AP supine views of the abdomen and pelvis June 11, 2017; CT abdomen and pelvis April 24, 2017 FINDINGS: Normal visualized lung bases. Gas is seen in the nondistended C-loop of the duodenum and 2 short segment, nondistended small bowel loops in the left upper quadrant. There is borderline mural thickening in these areas raises question of local enteritis. Other nondistended gas-filled small bowel loops in the midabdomen are unremarkable. Visualized colon also appears normal. There is no demonstrated free abdominal air. The visualized liver, spleen and kidneys are grossly normal in size and morphology. Normal soft tissue structures. Chronic bilateral L5 pars defects and spina bifida occulta at S1 again noted. RAD/Abdomen Single View IMPRESSION: 1. Question of localized duodenitis and/or mild proximal jejunitis without distention. The remaining bowel loops are unremarkable. No free gas. 2. No demonstrated urinary stone. Electronically Signed: Aron Eastman MD at 14:16 EDT , Service support ,
[2018-08-14 14:18] LABS: Bacteria 0 SEEN /hpf (None Seen)
[2018-08-14 14:19] LABS: Color, Urine Yellow (Yellow); Glucose, Dipstick Normal (Normal); Ketone-Dipstick 5 mg/dl (Negative); Leukocyte Esterase-Dipstick 25 /ul (Negative); Nitrite-Dipstick Positive (Negative); Occult Blood-Urine 250 /ul (Negative); Protein-Dipstick 100 mg/dl (Negative); Specific Gravity, Urine 1.025 (1.002-1.030); Urine Bilirubin Dipstick 1 mg/dL (Negative); Urine Clarity Sl. Cloudy (Clear); Urine Urobilinogen 1 mg/dl (Normal)
[2018-08-14 14:26] LABS: Red Blood Cells-Urine 25-50 SEEN /hpf (0-5); White Blood Cells 0-5 SEEN /hpf (0-5)
[2018-08-14 14:27] LABS: Mucous, Urine 1+ /hpf (<or=2+); Squamous Epithelial Cells - UA 0-5 SEEN /hpf (0-5)
--- NOTE | 2018-08-14 15:41 | ED.VIS.GEN ---
History of Present Illness Chief Complaint: Flank Pain Informant: Patient, Family Onset: Today - 1-2 hrs OUTSIDE [employer] SALES Context: Sudden Onset - w/o injury Timing: Continuous - colicky Quality: achy Location: left flank Current Severity: Moderate Maximum Severity: Severe Worsened by: nothing Relieved by: nothing Associated Symptoms: n/v. no urinary sx. no back pain. Narrative: Pain that feels like prior kidney stones. Has never required procedure/surgery to remove one, he has passed them both but 1 of them was 5 mm and required about a week of expectant management. This pain feels the same. It radiates down into his left groin and scrotum. It is mostly in his left mid abdomen. Kidney stones run in the family. Prior similar symptoms: Yes - kidney stone x 2 before Recent Illness/Hospitalization: No - Past Medical History (1) Kidney stones Status: Chronic Past Medical History - Allergies and Home Meds Allergies/Adverse Reactions: Allergies No Known Allergies Allergy (Verified 08/14/18 13:13) Primary Care Physician: Holley Arroyo MD [Primary Care Provider] - Lives: With Family Smoking Status: Never smoker Drugs: None - Family History Maternal Family History: Reports: - - kidney stones Review of Systems General: Denies: Chills, Fever Cardiovascular: Denies: Chest pain, Palpitations Respiratory: Denies: Dyspnea, Cough Gastrointestinal: Reports: Abdominal pain, Nausea, Vomiting. Denies: Diarrhea, Melena, Hematochezia Genitourinary: Denies: Dysuria, Hematuria, Frequency Musculoskeletal: Denies: Neck pain, Back pain Skin: Denies: Abrasions, Wounds Neurological: Denies: Headache, Weakness, Parasthesia Physical Exam Vital Signs/Narrative: Vital Signs Temp Pulse Resp BP Pulse Ox 08/14/18 13:14 97.2 F L 61 18 130/75 H 97 Inital Vital Signs reviewed: Yes Cardiovascular: Regular rate, Regular rhythm, No murmurs Respiratory: No distress, CTA bilaterally, Chest nontender Abdomen: Soft, Nontender, Nondistended, Normal bowel sounds Back: Normal Inspection, CVA tenderness - mild left Extremities: Nontender, No edema Skin: Normal color, No rash, No Trauma Neurological: Alert, Oriented x3, Cranial nerves II-XII grossly intact, Normal Strength, Normal Sensation Psychological: Normal affect, Normal Mood Diagnostic/Tx/Re-eval Impressions KUB X-Ray 08/14/18 13:48 IMPRESSION: 1. Question of localized duodenitis and/or mild proximal jejunitis without distention. The remaining bowel loops are unremarkable. No free gas. 2. No demonstrated urinary stone. Electronically Signed: Aron Eastman MD at 14:16 EDT , Service support , 08/14/18 13:48 KUB [Abdomen Single View] [RAD] Stat Laboratory Results 08/14/18 14:10 Urine Color Yellow Urine Clarity Sl. Cloudy Urine pH 6.0 Ur Specific [place] 1.025 Urine Protein 100 H Urine Glucose (UA) Normal Urine Ketones 5 H Urine Occult Blood 250 H Urine Nitrite Positive H Urine Bilirubin 1 H Urine Urobilinogen 1 H Ur Leukocyte Esterase 25 H Urine RBC 25-50 SEEN Urine WBC 0-5 SEEN Ur Squamous Epith Cells 0-5 SEEN Urine Bacteria 0 SEEN Urine Mucus 1+ - Medical Decision Making X-ray shows nonspecific bowel gas pattern, I do not think he clinically has an acute gastroenterologic issue. No radiopaque urinary calculus was seen, which does not rule it out. His urine shows positive nitrite but otherwise shows no evidence for infection. I sent for a culture but I do not think he needs antibiotics. After IV fluids, Zofran, Toradol, his pain is resolved and he feels much better. I do not think he needs a CT at this time especially if he has a hereditary kidney stone disorder, as he may have many CTs throughout his life. I discussed all this with him and father and they agree and are comfortable with expectant management at this time and given reasons to return to the ER, otherwise urology to follow-up with, along with prescription analgesics and Zofran. ED Disposition - Plan for ED Patient: Disposition: Home or Assisted Living Diagnosis: Ureteral colic Instructions: ED Stone Renal W Colic, ED Strainer Urine Prescriptions: Hydrocodone Bitart/Apap 5-325 [[place] 5MG-325MG] 1 tab PO Q4H PRN PRN 3 Days #18 tab PRN Reason: Pain Ondansetron [Zofran] 8 mg PO Q8H PRN PRN #12 tab PRN Reason: Nausea Referrals: Holley Arroyo MD [Primary Care Provider] - Pablo Henry MD [STAFF PHYSICIAN] - 1 Week if not improving
[2018-08-14 15:44] VITALS: BP 120/81; PULSE 91; RESP 17; TEMP 36.7; O2SAT 96
--- NOTE | 2018-08-14 15:45 | ED.DCSUM_ITS ---
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 no urinary sx. no back pain. Narrative: Pain that feels like prior kidney stones. Has never required procedure/surgery to remove one, he has passed them both but 1 of them was 5 mm and required about a week of expectant management. This pain feels the same. It radiates down into his left groin and scrotum. It is mostly in his left mid abdomen. Kidney stones run in the family. Prior similar symptoms: Yes - kidney stone x 2 before Recent Illness/Hospitalization: No - Past Medical History (1) Kidney stones Status: Chronic Past Medical History - Allergies and Home Meds Allergies/Adverse Reactions: Allergies No Known Allergies Allergy (Verified 08/14/18 13:13) Primary Care Physician: Holley Arroyo MD [Primary Care Provider] - Lives: With Family Smoking Status: Never smoker Drugs: None - Family History Maternal Family History: Reports: - - kidney stones Review of Systems General: Denies: Chills, Fever Cardiovascular: Denies: Chest pain, Palpitations Respiratory: Denies: Dyspnea, Cough Gastrointestinal: Reports: Abdominal pain, Nausea, Vomiting. Denies: Diarrhea, Melena, Hematochezia Genitourinary: Denies: Dysuria, Hematuria, Frequency Musculoskeletal: Denies: Neck pain, Back pain Skin: Denies: Abrasions, Wounds Neurological: Denies: Headache, Weakness, Parasthesia Physical Exam Vital Signs/Narrative: Vital Signs Temp Pulse Resp BP Pulse Ox 08/14/18 13:14 97.2 F L 61 18 130/75 H 97 Inital Vital Signs reviewed: Yes Cardiovascular: Regular rate, Regular rhythm, No murmurs Respiratory: No distress, CTA bilaterally, Chest nontender Abdomen: Soft, Nontender, Nondistended, Normal bowel sounds Back: Normal Inspection, CVA tenderness - mild left Extremities: Nontender, No edema Skin: Normal color, No rash, No Trauma Neurological: Alert, Oriented x3, Cranial nerves II-XII grossly intact, Normal Strength, Normal Sensation Psychological: Normal affect, Normal Mood Diagnostic/Tx/Re-eval Impressions KUB X-Ray 08/14/18 13:48 IMPRESSION: 1. Question of localized duodenitis and/or mild proximal jejunitis without distention. The remaining bowel loops are unremarkable. No free gas. 2. No demonstrated urinary stone. Electronically Signed: Aron Eastmna MD at 14:16 EDT , Service support , 08/14/18 13:48 KUB [Abdomen Single View] [RAD] Stat Laboratory Results 08/14/18 14:10 Urine Color Yellow Urine Clarity Sl. Cloudy Urine pH 6.0 Ur Specific [place] 1.025 Urine Protein 100 H Urine Glucose (UA) Normal Urine Ketones 5 H Urine Occult Blood 250 H Urine Nitrite Positive H Urine Bilirubin 1 H Urine Urobilinogen 1 H Ur Leukocyte Esterase 25 H Urine RBC 25-50 SEEN Urine WBC 0-5 SEEN Ur Squamous Epith Cells 0-5 SEEN Urine Bacteria 0 SEEN Urine Mucus 1+ - Medical Decision Making X-ray shows nonspecific bowel gas pattern, I do not think he clinically has an acute gastroenterologic issue. No radiopaque urinary calculus was seen, which does not rule it out. His urine shows positive nitrite but otherwise shows no evidence for infection. I sent for a culture but I do not think he needs antibiotics. After IV fluids, Zofran, Toradol, his pain is resolved and he feels much better. I do not think he needs a CT at this time especially if he has a hereditary kidney stone disorder, as he may have many CTs throughout his l [place]. I discussed all this with him and father and they agree and are comfortable with expectant management at this time and given reasons to return to the ER, otherwise urology to follow-up with, along with prescription analgesics and Zofran. ED Disposition - Plan for ED Patient: Disposition: Home or Assisted Living Diagnosis: Ureteral colic Instructions: ED Stone Renal W Colic, ED Strainer Urine Prescriptions: Hydrocodone Bitart/Apap 5-325 [[place] 5MG-325MG] 1 tab PO Q4H PRN PRN 3 Days #18 tab PRN Reason: Pain Ondansetron [Zofran] 8 mg PO Q8H PRN PRN #12 tab PRN Reason: Nausea Referrals: Holley Arroyo MD [Primary Care Provider] - Pablo Henry MD [STAFF PHYSICIAN] - 1 Week if not improving
[2018-08-14 15:57] VITALS: BP 129/81; PULSE 76; RESP 15; O2SAT 98
== END 2018-08-14 15:58 | disposition home or self-care (01) ==
PROVIDERS: Emergency Provider Emergency Medicine; Family Provider Pediatrics; PCP Pediatrics
DX: N23 Unspecified renal colic (principal); Z87.442 Personal history of urinary calculi
CPT/HCPCS: 74018; 81001; 87086; 87088; 96361; 96374; 96375; 99282; J7030; A4216; J2405

== ENCOUNTER 2018-08-17 09:23 | Emergency (ER) | payer BC, SELFPAY ==
[2018-08-17 09:26] VITALS: BP 113/70; PULSE 72; RESP 16; TEMP 37.1; O2SAT 98; BMI 28.7
--- NOTE | 2018-08-17 09:58 | CT_ITS ---
STUDY: CT ABDOMEN AND PELVIS WITHOUT CONTRAST REASON FOR EXAM: Male, 18 years old. Left flank pain with low-grade fever RADIATION DOSAGE (If Supplied By Facility): CTDIvol = ( 10.12 ) mGy, DLP = ( 546.05 ) mGycm TECHNIQUE: Transaxial images were obtained from the dome of the diaphragm to the symphysis pubis without oral contrast, and without intravenous contrast. Sagittal and coronal images were reconstructed. Individualized dose optimization techniques were used for this CT. COMPARISON: 04/24/2017 CT and 08/14/2018 KUB FINDINGS: The visualized lung bases are unremarkable. The visualized portions of the heart are within normal limits. Normal liver. Normal gallbladder and extrahepatic biliary system. Normal spleen. Normal pancreas. Normal bilateral adrenal glands. Normal right kidney. Mild left hydronephrosis and perinephric stranding is new since the prior study. 2 mm calcification in the left mid kidney on image 59 is new. 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 Normal visualized stomach. Normal small intestine. Normal colon. The appendix is visualized and appears normal. Normal abdominal aorta. Normal inferior vena cava. Normal retroperitoneum. Normal urinary bladder. Slight amount of free fluid in the left hemipelvis is seen on image 139. Normal abdominal wall. Normal osseous structures. CT/Abdomen/Pelvis without Cont IMPRESSION: 1. Left mid ureter calculus with mild hydronephrosis. The left ureter calculus has mildly advanced since prior KUB of 08/14/2018. 2. Slight left hemipelvis free fluid. 3. Nonobstructing punctate left renal calculus. Electronically Signed: Gray Sherman MD at 10:38 EDT , Service support ,
[2018-08-17] MEDS: Ketorolac 30 MG/ML Syringe IV (10:13)
[2018-08-17] MEDS: 0.9% Normal Saline 1,000 ML 999 ML IV (10:14)
--- NOTE | 2018-08-17 10:15 | ED.DCSUM_ITS ---
- ER Visit Summary Date of Service: 08/17/18 Chief Complaint: Fever History of Present Illness: The patient is a 18 M presents emergency department. Patient states that he was seen on Sunday evening and given a diagnosis of left kidney stone. He did not have a CT as he has had a kidney stone in the pas t and this felt similar. He states that later that night he felt fine. On he began to have a low-grade temperature of 99.3. Last night it was as high as 101.3. He last had Tylenol at 083 0 hours this morning. He also notes increasing pain in the left flank. He notes that he is on sulfasalazine as well as Plaquenil for possible lupus diagnosis. He denies any hematuria frequency or dysuria. No diarrhea. Physical Examination: Afebrile vital signs are stable Gen: Well-nourished well-developed Head: Normocephalic atraumatic Eyes: Perrl EOMI ENT: TMs clear no rhinorrhea moist mucous membranes Neck: Supple no lymphadenopathy no JVD nontender CVS: Regular rate rhythm no murmurs normal S1-S2 Respiratory: No distress clear to auscultation bilaterally chest nontender Abdomen: Soft nontender nondistended normal bowel sounds no masses Back: Nontender Extremity: Nontender no edema Skin: Normal color no rash Neuro: alert orientated ?3 CN II-XII intact normal strength sensation reflexes gait cerebellar Psych: Normal affect normal mood Test Results: White count is elevated at 12. Patient's creatinine is elevated 1.64. CT down pelvis demonstrates a left mid ureteral calculus at approximately 3.6 mm with mild hydro-porosis. No significant perinephric stranding was noted. Urine showed hematuria Emergency Department Course and Treatment: He received IV fluids and Toradol. Patient took substantial time in being able to provide a urine specimen for us. I do not see an obvious cause for the source of fever though intuitively would be concerned about a urine source. I think is reasonable to cover him with some Keflex. The patient is comfortable with this plan. Impression: 1. Left 3.6 mm ureteral calculus 2. Reported fever This note was generated with [employer] dictation software. It may contain incorrect words, spelling, and punctuation that were not noted in review of the chart prior to signing ED Disposition - Plan for ED Patient: Disposition: Home or Assisted Living Instructions: ED Stone Renal W Colic Prescriptions: Hydrocodone Bitart/Apap 5-325 [[place] 5MG-325MG] 1 tab PO Q6H PRN PRN 3 Days #12 tab PRN Reason: Pain Cephalexin [Keflex] 500 mg PO Q6 #20 cap Referrals: Pablo Henry MD [STAFF PHYSICIAN] - 1 Week
[2018-08-17 10:19] LABS: Absolute Lymphocyte Count 1.66 X10^3/ul (0.83-4.51); Absolute Neutrophil Count 8.5 X10^3/uL (2.0-7.7); Basophil# 0.01 X10^3/uL; Basophil% 0.1 % (0-1); Eosinophils% 0.8 % (0-5); Hematocrit 42.4 % (40-54); Hemoglobin 14.8 g/dl (13.0-16.5); Lymphocyte # 1.66 X10^3/ul (4.0); Lymphocyte % 13.8 % (19-41); Mean Corp Hgb Conc 34.9 g/gl (32-36); Mean Corpuscular Hgb 30.5 pg (27.0-32.0); Mean Corpuscular Volume 87.4 fL (80-94); Mean Platelet Vol. 11.1 fl (6.2-12.0); Monocyte# 1.68 X10^3/uL; Neutrophil # 8.54 X10^3/uL (2.7-7.7); Neutrophil % 71.1 % (47-70); POSITIVE COUNT NO; POSITIVE DIFFERENTIAL YES; POSITIVE MORPHOLOGY NO; Platelet Count 161 K/mm3 (150-450); RBC Distribution Width CV 12.4 % (11.6-14.6); RBC Distribution Width SD 39.9 fl (35.1-43.9); Red Blood Count 4.85 M/mm3 (4.6-6.2)
[2018-08-17 10:20] LABS: Differential Indicated SCAN CRITERIA MET
[2018-08-17 10:28] VITALS: BP 126/76; PULSE 68; RESP 18; TEMP 36.5; O2SAT 99
[2018-08-17 10:33] VITALS: BP 113/70; PULSE 72; RESP 16; TEMP 37.1; O2SAT 98
[2018-08-17 10:35] LABS: Anion Gap 6 (5-15); BUN 14 mg/dL (7-18); BUN/Creat Ratio 8.5 RATIO (10-20); Calcium,Total 8.8 mg/dL (8.5-10.1); Chloride 106 mmol/L (98-107); Creatinine, Serum 1.64 mg/dL (0.70-1.30); EST Glomerular Filtration Rate 57 mL/min (>60); Est Glom Filt Rate - Afr Amer 69 mL/min (>60); Estimated Creatinine Clearance 74.19 ml/min; Glucose 84 mg/dL (74-106); Potassium 3.9 mmol/L (3.5-5.1); Sodium Level 139 mmol/L (136-145)
[2018-08-17 11:00] VITALS: BP 106/70; PULSE 54; RESP 16; TEMP 36.7; O2SAT 99
[2018-08-17] MEDS: 0.9% Normal Saline 1,000 ML 250 ML IV (12:10)
[2018-08-17 12:52] LABS: Bacteria 0 SEEN /hpf (None Seen); Mucous, Urine 0 SEEN /hpf (<or=2+); Squamous Epithelial Cells - UA 0 SEEN /hpf (0-5)
[2018-08-17 13:00] VITALS: BP 118/77; PULSE 63; RESP 18; TEMP 36.6; O2SAT 100
[2018-08-17 13:05] LABS: Color, Urine Yellow (Yellow); Glucose, Dipstick Normal (Normal); Ketone-Dipstick 50 mg/dl (Negative); Leukocyte Esterase-Dipstick 25 /ul (Negative); Nitrite-Dipstick Negative (Negative); Occult Blood-Urine 250 /ul (Negative); Protein-Dipstick 15 mg/dl (Negative); Specific Gravity, Urine 1.015 (1.002-1.030); Urine Bilirubin Dipstick Negative (Negative); Urine Clarity Sl. Cloudy (Clear); Urine Urobilinogen Normal (Normal)
[2018-08-17 13:12] LABS: Red Blood Cells-Urine 25-50 SEEN /hpf (0-5); White Blood Cells 0-5 SEEN /hpf (0-5)
[2018-08-17 14:29] VITALS: BP 134/64; PULSE 78; RESP 16; TEMP 36.8; O2SAT 99
== END 2018-08-17 14:32 | disposition home or self-care (01) ==
PROVIDERS: Emergency Provider Emergency Medicine; Family Provider Pediatrics; PCP Pediatrics
DX: N13.2 Hydronephrosis with renal and ureteral calculous obstruction (principal)
CPT/HCPCS: 74176; 80048; 81001; 85025; 96361; 96374; 99283; J7030; A4216

== ENCOUNTER → 2018-10-15 | Outpatient (CLI) | payer BC, SELFPAY ==
[2018-10-15 14:18] LABS: Absolute Lymphocyte Count 2.03 X10^3/ul (0.83-4.51); Absolute Neutrophil Count 3.3 X10^3/uL (2.0-7.7); Basophil# 0.01 X10^3/uL; Basophil% 0.2 % (0-1); Eosinophils% 1.7 % (0-5); Hemoglobin 14.8 g/dl (13.0-16.5); Lymphocyte # 2.03 X10^3/ul (4.0); Lymphocyte % 33.6 % (19-41); Mean Corp Hgb Conc 35.2 g/gl (32-36); Mean Corpuscular Hgb 30.1 pg (27.0-32.0); Mean Corpuscular Volume 85.5 fL (80-94); Monocyte# 0.58 X10^3/uL; Monocyte% 9.6 % (0-10); Neutrophil # 3.32 X10^3/uL (2.7-7.7); Neutrophil % 54.7 % (47-70); Platelet Count 178 K/mm3 (150-450); RBC Distribution Width CV 12.6 % (11.6-14.6); RBC Distribution Width SD 38.2 fl (35.1-43.9); Red Blood Count 4.91 M/mm3 (4.6-6.2); White Blood Count 6.1 K/mm3 (4.4-11.0)
[2018-10-15 14:20] LABS: POSITIVE COUNT NO; POSITIVE DIFFERENTIAL NO; POSITIVE MORPHOLOGY NO
[2018-10-15 14:26] LABS: ALB/GLOB Ratio 1.2 RATIO (0.9-2.4); AST(SGOT) 18 U/L (15-37); Alanine Aminotransfer ALT/SGPT 23 U/L (16-61); Albumin, Serum 4.1 g/dL (3.2-5.0); Alkaline Phosphatase 70 U/L (45-117); Anion Gap 6 (5-15); BUN 12 mg/dL (7-18); BUN/Creat Ratio 14.1 RATIO (10-20); Calcium,Total 9.1 mg/dL (8.5-10.1); Chloride 108 mmol/L (98-107); Creatinine, Serum 0.85 mg/dL (0.70-1.30); EST Glomerular Filtration Rate 121 mL/min (>60); Est Glom Filt Rate - Afr Amer 147 mL/min (>60); Globulin 3.5 g/dL (2.2-4.2); Glucose 93 mg/dL (74-106); Potassium 4.1 mmol/L (3.5-5.1); Protein, Total 7.6 g/dL (6.4-8.2); Sodium Level 141 mmol/L (136-145)
== END | disposition home or self-care (01) ==
LOC: MTLAB 12:37
PROVIDERS: Family Provider Pediatrics; PCP Pediatrics; Referring Provider Internal Medicine Rheumatology; Visit Provider Internal Medicine Rheumatology
DX: M06.4 Inflammatory polyarthropathy (principal); Z79.899 Other long term (current) drug therapy; M21.40 Flat foot [pes planus] (acquired), unspecified foot; K21.9 Gastro-esophageal reflux disease without esophagitis; J45.909 Unspecified asthma, uncomplicated; N20.0 Calculus of kidney
CPT/HCPCS: 36415; 80053; 85025

== ENCOUNTER → 2019-01-01 16:35 | Outpatient (CLI) | payer BC, SELFPAY ==
[2019-01-01 17:34] LABS: Absolute Lymphocyte Count 1.83 X10^3/uL (0.83-4.51); Absolute Neutrophil Count 5.9 X10^3/uL (2.0-7.7); Basophil# 0.02 X10^3/uL; Basophil% 0.2 % (0-1); Eosinophil# 0.06 X10^3/uL; Eosinophils% 0.7 % (0-5); Hematocrit 42.4 % (40-54); Hemoglobin 14.5 g/dL (13.0-16.5); Lymphocyte # 1.83 X10^3/ul (4.0); Lymphocyte % 22.2 % (19-41); Mean Corp Hgb Conc 34.2 g/dL (32-36); Mean Corpuscular Hgb 30.1 pg (27.0-32.0); Mean Platelet Vol. 11.8 fl (6.2-12.0); Monocyte# 0.43 X10^3/uL; Monocyte% 5.2 % (0-10); NRBC Flagged by Analyzer 0 % (0-5); Neutrophil # 5.88 X10^3/uL (2.7-7.7); Neutrophil % 71.5 % (47-70); Platelet Count 180 K/mm3 (150-450); RBC Distribution Width CV 11.9 % (11.6-14.6); RBC Distribution Width SD 38.4 fl (35.1-43.9); Red Blood Count 4.82 M/mm3 (4.6-6.2); White Blood Count 8.2 K/mm3 (4.4-11.0)
[2019-01-01 18:14] LABS: ALB/GLOB Ratio 1.2 RATIO (0.9-2.4); AST(SGOT) 15 U/L (15-37); Alanine Aminotransfer ALT/SGPT 22 U/L (16-61); Albumin, Serum 4.1 g/dL (3.2-5.0); Alkaline Phosphatase 68 U/L (45-117); Anion Gap 4 (5-15); BUN 6 mg/dL (7-18); BUN/Creat Ratio 6.2 RATIO (10-20); Calcium,Total 9.1 mg/dL (8.5-10.1); Chloride 110 mmol/L (98-107); Creatinine, Serum 0.96 mg/dL (0.70-1.30); EST Glomerular Filtration Rate 105 mL/min (>60); Est Glom Filt Rate - Afr Amer 127 mL/min (>60); Globulin 3.5 g/dL (2.2-4.2); Glucose 109 mg/dL (74-106); Potassium 3.8 mmol/L (3.5-5.1); Protein, Total 7.6 g/dL (6.4-8.2); Sodium Level 141 mmol/L (136-145)
== END ==
PROVIDERS: Family Provider Pediatrics; PCP Pediatrics; Referring Provider Internal Medicine Rheumatology; Visit Provider Internal Medicine Rheumatology
DX: M06.4 Inflammatory polyarthropathy (principal); Z79.899 Other long term (current) drug therapy; M21.40 Flat foot [pes planus] (acquired), unspecified foot; K21.9 Gastro-esophageal reflux disease without esophagitis; J45.909 Unspecified asthma, uncomplicated; N20.0 Calculus of kidney
CPT/HCPCS: 36415; 80053; 85025

== ENCOUNTER → 2019-04-04 10:51 | Outpatient (CLI) | payer BC, SELFPAY ==
[2019-04-04 12:21] LABS: Absolute Lymphocyte Count 2.14 X10^3/uL (0.83-4.51); Absolute Neutrophil Count 3.4 X10^3/uL (2.0-7.7); Basophil# 0.01 X10^3/uL; Basophil% 0.2 % (0-1); Eosinophil# 0.12 X10^3/uL; Hematocrit 44.9 % (40-54); Hemoglobin 15.3 g/dL (13.0-16.5); Lymphocyte # 2.14 X10^3/ul (4.0); Mean Corp Hgb Conc 34.1 g/dL (32-36); Mean Platelet Vol. 11.9 fl (6.2-12.0); Monocyte# 0.48 X10^3/uL; Monocyte% 7.8 % (0-10); NRBC Flagged by Analyzer 0 % (0-5); Neutrophil # 3.36 X10^3/uL (2.7-7.7); Neutrophil % 54.8 % (47-70); Platelet Count 188 K/mm3 (150-450); RBC Distribution Width SD 38.5 fl (35.1-43.9); White Blood Count 6.1 K/mm3 (4.4-11.0)
[2019-04-04 12:45] LABS: ALB/GLOB Ratio 1.2 RATIO (0.9-2.4); AST(SGOT) 16 U/L (15-37); Alanine Aminotransfer ALT/SGPT 19 U/L (16-61); Albumin, Serum 4.2 g/dL (3.2-5.0); Alkaline Phosphatase 67 U/L (45-117); Anion Gap 6 (5-15); BUN 14 mg/dL (7-18); BUN/Creat Ratio 15.8 RATIO (10-20); Calcium,Total 9.6 mg/dL (8.5-10.1); Chloride 107 mmol/L (98-107); Creatinine, Serum 0.89 mg/dL (0.70-1.30); EST Glomerular Filtration Rate 115 mL/min (>60); Est Glom Filt Rate - Afr Amer 139 mL/min (>60); Globulin 3.6 g/dL (2.2-4.2); Glucose 88 mg/dL (74-106); Protein, Total 7.8 g/dL (6.4-8.2); Sodium Level 142 mmol/L (136-145)
== END ==
PROVIDERS: Family Provider Pediatrics; PCP Pediatrics; Referring Provider Internal Medicine Rheumatology; Visit Provider Internal Medicine Rheumatology
DX: M06.4 Inflammatory polyarthropathy (principal); Z79.899 Other long term (current) drug therapy; M21.40 Flat foot [pes planus] (acquired), unspecified foot; K21.9 Gastro-esophageal reflux disease without esophagitis; J45.909 Unspecified asthma, uncomplicated; N20.0 Calculus of kidney
CPT/HCPCS: 36415; 80053; 85025

== ENCOUNTER → 2019-06-27 09:46 | Outpatient (CLI) | payer BC, SELFPAY ==
[2019-06-27 12:42] LABS: Absolute Lymphocyte Count 2.54 X10^3/uL (0.83-4.51); Basophil# 0.03 X10^3/uL; Basophil% 0.5 % (0-1); Eosinophil# 0.26 X10^3/uL; Eosinophils% 4.1 % (0-5); Hematocrit 43.5 % (40-54); Hemoglobin 14.4 g/dL (13.0-16.5); Lymphocyte # 2.54 X10^3/ul (4.0); Lymphocyte % 39.7 % (19-41); Mean Corp Hgb Conc 33.1 g/dL (32-36); Mean Corpuscular Hgb 29.4 pg (27.0-32.0); Mean Corpuscular Volume 88.8 fL (80-94); Monocyte% 9.4 % (0-10); NRBC Flagged by Analyzer 0 % (0-5); Neutrophil # 2.95 X10^3/uL (2.7-7.7); Neutrophil % 46.1 % (47-70); Platelet Count 212 K/mm3 (150-450); RBC Distribution Width CV 12.1 % (11.6-14.6); White Blood Count 6.4 K/mm3 (4.4-11.0)
[2019-06-27 12:58] LABS: ALB/GLOB Ratio 1.1 RATIO (0.9-2.4); AST(SGOT) 12 U/L (15-37); Alanine Aminotransfer ALT/SGPT 24 U/L (16-61); Alkaline Phosphatase 76 U/L (45-117); Anion Gap 4 (5-15); BUN 9 mg/dL (7-18); BUN/Creat Ratio 9.4 RATIO (10-20); Calcium,Total 9.3 mg/dL (8.5-10.1); Chloride 112 mmol/L (98-107); Creatinine, Serum 0.96 mg/dL (0.70-1.30); EST Glomerular Filtration Rate 105 mL/min (>60); Est Glom Filt Rate - Afr Amer 127 mL/min (>60); Globulin 3.6 g/dL (2.2-4.2); Glucose 104 mg/dL (74-106); Potassium 3.9 mmol/L (3.5-5.1); Protein, Total 7.6 g/dL (6.4-8.2); Sodium Level 145 mmol/L (136-145)
== END ==
PROVIDERS: PCP Pediatrics; Referring Provider Internal Medicine Rheumatology; Visit Provider Internal Medicine Rheumatology
DX: M06.4 Inflammatory polyarthropathy (principal); Z79.899 Other long term (current) drug therapy; M21.40 Flat foot [pes planus] (acquired), unspecified foot; K21.9 Gastro-esophageal reflux disease without esophagitis; J45.909 Unspecified asthma, uncomplicated; N20.0 Calculus of kidney
CPT/HCPCS: 36415; 80053; 85025

== ENCOUNTER → 2019-10-15 16:39 | Outpatient (CLI) | payer BC, SELFPAY ==
[2019-10-15 18:27] LABS: Absolute Lymphocyte Count 2.66 X10^3/uL (0.83-4.51); Absolute Neutrophil Count 3.4 X10^3/uL (2.0-7.7); Basophil# 0.02 X10^3/uL; Basophil% 0.3 % (0-1); Eosinophil# 0.13 X10^3/uL; Eosinophils% 1.9 % (0-5); Hematocrit 43.6 % (40-54); Hemoglobin 14.7 g/dL (13.0-16.5); Lymphocyte # 2.66 X10^3/ul (4.0); Lymphocyte % 39.3 % (19-41); Mean Corp Hgb Conc 33.7 g/dL (32-36); Mean Corpuscular Hgb 29.9 pg (27.0-32.0); Mean Corpuscular Volume 88.8 fL (80-94); Mean Platelet Vol. 11.7 fl (6.2-12.0); Monocyte# 0.53 X10^3/uL; Monocyte% 7.8 % (0-10); NRBC Flagged by Analyzer 0 % (0-5); Neutrophil # 3.41 X10^3/uL (2.7-7.7); Neutrophil % 50.4 % (47-70); Platelet Count 212 K/mm3 (150-450); RBC Distribution Width SD 38.7 fl (35.1-43.9); Red Blood Count 4.91 M/mm3 (4.6-6.2); White Blood Count 6.8 K/mm3 (4.4-11.0)
[2019-10-15 18:36] LABS: ALB/GLOB Ratio 1.2 RATIO (0.9-2.4); AST(SGOT) 17 U/L (15-37); Alanine Aminotransfer ALT/SGPT 26 U/L (16-61); Albumin, Serum 4.4 g/dL (3.2-5.0); Alkaline Phosphatase 75 U/L (45-117); Anion Gap 5 (5-15); BUN 17 mg/dL (7-18); BUN/Creat Ratio 17.5 RATIO (10-20); Calcium,Total 9.5 mg/dL (8.5-10.1); Chloride 109 mmol/L (98-107); Creatinine, Serum 0.97 mg/dL (0.70-1.30); EST Glomerular Filtration Rate 103 mL/min (>60); Est Glom Filt Rate - Afr Amer 124 mL/min (>60); Globulin 3.6 g/dL (2.2-4.2); Glucose 90 mg/dL (74-106); Potassium 4.4 mmol/L (3.5-5.1); Sodium Level 144 mmol/L (136-145)
== END ==
PROVIDERS: PCP Pediatrics; Referring Provider Internal Medicine Rheumatology; Visit Provider Internal Medicine Rheumatology
DX: M06.4 Inflammatory polyarthropathy (principal); Z79.899 Other long term (current) drug therapy; M21.40 Flat foot [pes planus] (acquired), unspecified foot; K21.9 Gastro-esophageal reflux disease without esophagitis; J45.909 Unspecified asthma, uncomplicated; N20.0 Calculus of kidney
CPT/HCPCS: 36415; 80053; 85025